=== PATIENT | male | born 1980 | race Two or more races ===

== ENCOUNTER → 2017-02-24 03:31 | Emergency (ER) | payer MEDICAID ==
[~2017-02-24] VITALS: Ht 172.7 cm; Wt 90.7 kg
[2017-02-24 03:58] VITALS: BP 133/99
== END | disposition left against medical advice (07) ==
LOC: ER 03:31
DX: K62.5 Hemorrhage of anus and rectum (principal); Z53.21 Procedure and treatment not carried out due to patient leaving prior to being seen by health care provider
CPT/HCPCS: 74176; J7030